=== PATIENT | male | born 1985 | race Caucasian/White ===

== ENCOUNTER 2017-10-14 11:21 | Emergency (ER) | payer OTHER ==
[~2017-10-14] VITALS: Ht 172.7 cm; Wt 99.8 kg
[2017-10-14 11:27] VITALS: BP 124/70
[2017-10-14 11:40] VITALS: BP 137/79
--- NOTE | 2017-10-14 11:40 | NUR ---
32 Y/M BIB SELF C/O BILATERAL WRIST PAIN X 2MONTHS. SKIN IS PINK/WARM/DRY; AAOX4 WITH EVEN AND STEADY GAIT; PATIENT STATES PAIN OF 10/10 AT THIS TIME; VSS; PATIENT POSITIONED FOR COMFORT; HOB ELEVATED; BEDRAILS UP X1; BED DOWN. ER MD MADE AWARE OF PT STATUS.
--- NOTE | 2017-10-14 11:40 | NUR ---
PT AMBULATES TO BED 3
--- NOTE | 2017-10-14 11:50 | NUR ---
Patient being evaluated by physician at bedside.
[2017-10-14 12:12] VITALS: BP 122/77
== END 2017-10-14 12:12 | disposition home or self-care (01) ==
LOC: MED 11:21
DX: M25.542 Pain in joints of left hand (principal); M25.541 Pain in joints of right hand
CPT/HCPCS: 99282